=== PATIENT | female | born 1990 | race Caucasian/White ===

== ENCOUNTER 2017-04-08 13:23 | Outpatient (CLI) | payer OTHER ==
[2017-04-08 13:47] VITALS: BP 137/67; PULSE 104; RESP 16; TEMP 97
== END 2017-04-08 14:21 | disposition home or self-care (01) ==
LOC: FBPOP 13:23
PROVIDERS: ATTEND Obstetrics & Gynecology
DX: O99.89 Other specified diseases and conditions complicating pregnancy, childbirth and the puerperium (principal); R51 Headache
CPT/HCPCS: 59025; 99213

== ENCOUNTER 2017-04-16 22:14 | Inpatient (IN) | payer OTHER ==
[2017-04-16] MEDS ORDERED: CARBOPROST TROMETHAMINE 250 MCG/ML 1 ML AMP IM PRN (23:01)
[2017-04-16] MEDS ORDERED: OXYTOCIN 10 UNIT/ML 1 ML VIAL IM PRN (23:01)
[2017-04-16] MEDS ORDERED: METHYLERGONOVINE 0.2 MG/ML 1 ML AMP IM PRN (23:01)
[2017-04-16] MEDS ORDERED: LIDOCAINE 1% (PF) 10 MG/ML (30 ML SDV) SQ PRN (23:01)
[2017-04-16] MEDS ORDERED: TERBUTALINE 1 MG/ML VIAL SQ PRN (23:01)
[2017-04-16] MEDS ORDERED: BUTORPHANOL 1 MG/ML 1 ML VIAL IV PRN (23:02)
[2017-04-16] MEDS: LACTATED RINGERS 1,000 ML IV SCH ×2 (23:05→23:46)
[2017-04-16 23:13] LABS: Basophils # (A) 0.1 k/uL (0-0.2); Basophils % (A) 1 %; CHCM 32.4; Eosinophils # (A) 0.3 k/uL (0-0.7); Eosinophils % (A) 2 %; HDW 3.15; HGB 10.3 gm/dL (11.4-16.0); Hypochromasia Slight; Luc % (Auto) 2; Lymphocytes # (A) 2.8 k/uL (1.0-4.8); Lymphocytes % (A) 18 %; MCH 27.9 pg (25.0-35.0); MCHC 32.1 g/dL (31.0-37.0); MCV 86.7 fL (80.0-100.0); Monocytes # (A) 1.2 k/uL (0-1.0); Monocytes % (A) 8 %; Neutrophils # (A) 10.8 k/uL (1.3-7.7); Neutrophils % (A) 70 %; RBC 3.69 m/uL (3.80-5.40); RDW 14.8 % (11.5-15.5); WBC 15.5 k/uL (3.8-10.6); WBC (Perox) 14.85
[2017-04-16] MEDS ORDERED: fentaNYL (PF) 50 MCG/ML 5 ML AMP ONE (23:24)
[2017-04-16] MEDS ORDERED: BUPIVACAINE (PF) 0.25% 30 ML VIAL ONE (23:24)
[2017-04-16] MEDS ORDERED: SODIUM CHLORIDE 0.9% 100 ML BAG ONE (23:24)
[2017-04-16 23:46] VITALS: BMI 33.2
[2017-04-17] MEDS: LACTATED RINGERS 1,000 ML IV SCH (04:35)
--- NOTE | 2017-04-17 04:40 | P.HPOB ---
History of Present Illness H&P Date: 04/17/17 Chief Complaint: My water broke at 2 PM This is a 26-year-old white female 1 para 0 EDC 05/02/2017 at 38 and one sevenths weeks' gestation. Patient presented with regular uterine contractions from home, and spontaneous amniorrhexis at 1400 hrs., clear fluid. Fetus is been active throughout the . Past medical history is significant for mild exercise-induced asthma, depression previously on Lexapro, endometriosis and hypothyroidism. Past surgical history wisdom teeth extracted, laparoscopic surgery for endometriosis 2012. Current medications levothyroxine 50 MCG's daily, vitamins daily, Ventolin inhaler as needed. ALLERGIES none known. Social history patient is single, she denies tobacco alcohol or drug use. history blood type is A+, rubella status immune. VDRL testing, hepatitis B surface antigen, gonorrhea and chlamydia cultures, HIV testing, group B strep cultures all -1 hour Glucola 122. On exam this is a pleasant white female, 5 foot 1 inch, 176 pounds, vital signs are stable and patient is afebrile. The general physical exam is within normal limits. Cervix on admission was 4-5 cm dilated, obvious ruptured membranes, -2 station, vertex presentation. heart rate is in the 140s with frequent accelerations, consistent with reactive NST. Impression 38 and one sevenths week intrauterine , unremarkable course, in active spontaneous labor. Plan: Close maternal and surveillance. Epidural and or Stadol can be given as per patient request. Anticipate normal spontaneous vaginal delivery. Review of Systems Negative except as in HPI Past Medical History Past Medical History: Asthma, Thyroid Disorder Additional Past Medical History / Comment(s): endometriosis, ovarian cyst History of Any Multi-Drug Resistant Organisms: None Reported Additional Past Surgical History / Comment(s): laprascopic removal of ovarian cyst Past Anesthesia/Blood Transfusion Reactions: No Reported Reaction Past Psychological History: Anxiety Smoking Status: Never smoker Past Alcohol Use History: None Reported, Occasional Past Drug Use History: None Reported - Past Family History Mother Family Medical History: Thyroid Disorder Additional Family Medical History / Comment(s): hypothyroidism Medications and Allergies Home Medications Medication Instructions Recorded Confirmed Type Levothyroxine Sodium [Synthroid] 1 tab PO DAILY 09/30/15 04/16/17 History Pnv,Calcium 72/Iron/Folic Acid 1 tab PO DAILY 04/16/17 04/16/17 History [ Plus Tablet] Allergies Allergy/AdvReac Type Severity Reaction Status Date / Time No Known Allergies Allergy Verified 04/16/17 22:32 Exam - Vital Signs Vital signs: Vital Signs Temp Pulse Resp BP 04/16/17 22:33 96.9 F L 97 16 131/75 Intake and Output 04/16/17 04/16/17 04/17/17 14:59 22:59 06:59 Output Total 200 Balance -200 Output: Urine 200 Other: # Voids 1 Weight 79.832 kg Patient Weight 04/17/17 06:59 Weight 79.832 kg Please see dictation under HPI Results Result Diagrams: 04/16/17 23:05 Abnormal Lab Results - Last 24 Hours (Table) 04/16/17 Range/Units 23:05 WBC 15.5 H (3.8-10.6) k/uL RBC 3.69 L (3.80-5.40) m/uL Hgb 10.3 L (11.4-16.0) gm/dL Hct 32.0 L (34.0-46.0) % Neutrophils # 10.8 H (1.3-7.7) k/uL Monocytes # 1.2 H (0-1.0) k/uL Assessment and Plan Plan: Close maternal and surveillance. Analgesic options discussed with the patient. Anticipate normal spontaneous vaginal delivery Time with Patient: Less than 30
[2017-04-17] MEDS ORDERED: OXYTOCIN 20 UNITS/1000 ML NS 1,000 ML IV SCH (04:45)
[2017-04-17] MEDS ORDERED: BENZOCAINE SPRAY 57GM TOPICAL PRN (06:37)
[2017-04-17] MEDS ORDERED: SIMETHICONE 80 MG CHEWABLE PO PRN (06:37)
[2017-04-17] MEDS ORDERED: WITCH HAZEL 1 EACH MED..PAD TOPICAL PRN (06:37)
[2017-04-17] MEDS ORDERED: diphenhydrAMINE 50 MG/ML 1 ML VIAL IVP PRN ×2 (06:37)
[2017-04-17] MEDS ORDERED: diphenhydrAMINE 50 MG CAP PO PRN (06:37)
[2017-04-17] MEDS ORDERED: ACETAMINOPHEN TAB 325 MG TAB PO PRN (06:37)
[2017-04-17] MEDS ORDERED: diphenhydrAMINE 25 MG CAP PO PRN (06:37)
[2017-04-17] MEDS ORDERED: HYDROCORTISONE 2.5% RECTAL CREAM 30 GM TUBE RECTAL PRN (06:37)
[2017-04-17] MEDS ORDERED: diphenhydrAMINE ELIXIR 25 MG/10 ML CUP PO PRN (06:37)
[2017-04-17] MEDS ORDERED: Acetaminophen-Codeine 300-30mg TAB PO PRN (06:37)
[2017-04-17] MEDS ORDERED: ZOLPIDEM 5 MG TAB PO PRN (06:37)
[2017-04-17] MEDS ORDERED: LANOLIN CREAM 5 GM TUBE TOPICAL PRN (06:37)
--- NOTE | 2017-04-17 06:37 | P.PROBDLV ---
Vaginal Delivery Note - . Vaginal Delivery Note: This is a 26-year-old white female 1 para 0 EDC 04/29/2017 at 38 and one sevenths weeks' gestation patient presented from home with spontaneous amniorrhexis which occurred at 4 PM. Fluid was clear, she had uterine contractions to follow. was essentially unremarkable, group B strep cultures negative, blood type A positive, rubella status immune. Please see my dictated history and physical for details. Patient requested an epidural and this was placed without difficulty. She progressed through labor and was judged to be completely dilated at 0537 hours. She began the second stage of labor at that time. heart rate was reassuring throughout the entire first and second stages of labor. With excellent maternal expulsive efforts ultimately the head crowned on the perineal body. The perineum was prepped and draped in the usual sterile fashion. 's head delivered an restituted accordingly. There was no nuchal cord noted. The left or anterior shoulder was delivered from underneath the pubic symphysis at which time the oropharynx, nasopharynx, and external nares were bulb suctioned on the perineal body. Patient was officially delivered of a liveborn female infant at 0613 hours. Umbilical cord was doubly clamped and ligated, he she was handed to waiting nurses for evaluation where scores of 9 and 9 at one and 5 minutes respectively were given. The placenta delivered spontaneously, it was inspected and noted to be intact with trivascular cord at 0615 hours. At this time the uterus was massaged. Inspection of the cervix, perineum, periurethral and perirectal areas revealed a small second-degree perineal laceration. This was repaired in the usual fashion using 4-0 Vicryl suture. Fundus is firm and in the midline, symmetric and 18 week size upon completion of delivery. Total estimated blood loss 300 mL's. All sponge needle and enhancement counts are correct at the end of the procedure. The patient and her family are allowed to begin the bonding experience in the LDR.
[2017-04-17] MEDS: SENNOSIDES-DOCUSATE SODIUM 1 EACH TAB PO SCH ×2 (12:55→20:52)
[2017-04-17] MEDS: IBUPROFEN 600 MG TAB PO PRN (15:30)
[2017-04-17] MEDS ORDERED: BUPIVACAINE (PF) 0.25% 25 ML, fentaNYL (PF) 200 MCG in SODIUM CHLORIDE 0.9% 71 ML EPIDURAL ONE (20:30)
[2017-04-18 01:01] VITALS: RESP 16
[2017-04-18 01:03] VITALS: BP 112/64; PULSE 86; TEMP 98.7
[2017-04-18] MEDS ORDERED: LEVOTHYROXINE 50 MCG TAB PO SCH (06:30)
[2017-04-18] MEDS: IBUPROFEN 600 MG TAB PO PRN (07:43)
[2017-04-18] MEDS: SENNOSIDES-DOCUSATE SODIUM 1 EACH TAB PO SCH (07:44)
--- NOTE | 2017-04-18 12:16 | P.DS ---
Providers Date of admission: 04/16/17 22:36 Expected date of discharge: 04/18/17 Attending physician: Srege Salas Primary care physician: Serge Salas - Discharge Diagnosis(es) (1) Normal spontaneous vaginal delivery Current Visit: Yes Status: Acute Hospital Course: The patient is a 26-year-old 1 para 0 admitted at 38 and one sevenths weeks by good dating parameters. She is admitted in early active labor with all signs reassuring having had spontaneous rupture of clear fluid. Her has been uncomplicated and group B strep status is negative. On labor and delivery, an epidural cath was placed for analgesia. She made consistent progress to the active phase of labor to complete and then pushed to a normal spontaneous vaginal delivery of a viable 7 lbs. 9 oz. baby girl with Apgars of 9 at 1 minute and 9 at 5 minutes. Her course was unremarkable vital signs remained stable and her temperature was afebrile throughout. She was deemed stable for discharge by day #1 and was discharged home to follow-up in the office in 6 weeks' time routinely. Discharge instructions included calling for any significantly increased bleeding or foul-smelling lochia, significantly increased fever or abdominal pain, perineal complaints, breast complaints, or anything else that concerned her. She was additionally instructed to have nothing in the vagina for at least 6 weeks time to include intercourse. She understood her instructions and agrees to follow up as noted above. Discharge medications included continued vitamins as she has opted to breast-feed. She was otherwise using over -the-counter analgesic pain medications as needed. Maternal blood type is A+ and rubella status is immune. Procedures: #1. Epidural analgesia #2. Normal spontaneous vaginal delivery #3. Repair of perineal laceration Patient Condition at Discharge: Good Plan - Discharge Summary New Discharge Prescriptions: No Action Levothyroxine Sodium [Synthroid] 1 tab PO DAILY Pnv,Calcium 72/Iron/Folic Acid [ Plus Tablet] 1 tab PO DAILY Discharge Medication List Levothyroxine Sodium [Synthroid] 1 tab PO DAILY 09/30/15 [History] Pnv,Calcium 72/Iron/Folic Acid [ Plus Tablet] 1 tab PO DAILY 04/16/17 [ History] Follow up Appointment(s)/Referral(s): Serge Salas MD [Primary Care Provider] - 6 Weeks Discharge Disposition: HOME SELF-CARE
== END 2017-04-18 13:30 | disposition home or self-care (01) | DRG 775 ==
LOC: FBPOP 22:14 → 4FBP 22:36
PROVIDERS: ADMIT Obstetrics & Gynecology; ATTEND Obstetrics & Gynecology
PROC: 0KQM0ZZ Repair Perineum Muscle, Open Approach (ICD-10-PCS; principal; 2017-04-16)
PROC: 00HU33Z Insertion of Infusion Device into Spinal Canal, Percutaneous Approach (ICD-10-PCS; principal; 2017-04-16)
PROC: 10E0XZZ Delivery of Products of Conception, External Approach (ICD-10-PCS; principal; 2017-04-16)
PROC: 3E0R3CZ (ICD-10-PCS; principal; 2017-04-16)
DX: O99.284 Endocrine, nutritional and metabolic diseases complicating childbirth (principal); E03.9 Hypothyroidism, unspecified; Z37.0 Single live birth; O70.1 Second degree perineal laceration during delivery; Z79.899 Other long term (current) drug therapy; Z3A.38 38 weeks gestation of pregnancy
CPT/HCPCS: 59025; 84112; 85025; 88307; 99213

== ENCOUNTER 2019-02-19 18:20 | Outpatient (CLI) | payer OTHER ==
[2019-02-19 18:52] VITALS: BP 124/72; PULSE 100; RESP 16; TEMP 98.4
[2019-02-19 18:56] LABS: Appearance,Urine Clear (Clear); Bilirubin,Urine Negative (Negative); Blood,Urine Negative (Negative); Color,Urine Light Yellow; Glucose,Urine (UA) Negative (Negative); Ketones,Urine Negative (Negative); Leukocyte Esterase,Urine Negative (Negative); Nitrite,Urine Negative (Negative); PH, Urine 6.5 (5.0-8.0); Protein,Urine Negative (Negative); Specific Gravity,Urine 1.005 (1.001-1.035); Urobilinogen,Urine <2.0 mg/dL (<2.0)
--- NOTE | 2019-02-27 09:44 | P.MSEPDOC ---
Presenting Problems - Arrival Data Date of Arrival on Unit: 02/19/19 Time of Arrival on Unit: 18:20 Mode of Transport: Ambulatory - Complaint OB-Reason for Admission/Chief Complaint: Signs/Symptoms UTI Medical History - Information : 2 Para: 1 Term: 1 : 0 Abortions: Spontaneous or Elective: 0 Number of Living Children: 1 - Gestational Age Gestational Age by MITA (wks/days): 33 Weeks and 2 Days Review of Systems - Review of Systems Constitutional: No problems Breast: No problems ENT: No problems Cardiovascular: No problems Respiratory: No problems Genitourinary: No problems Musculoskeletal: No problems Neurological: No problems Skin: No problems Vital Signs - Temperature Temperature: 98.4 F Temperature Source: Temporal Artery Scan - Pulse Left Pulse Rate: 100 Pulse Assessment Method: Pulse Oximetry - Respirations Respiratory Rate: 16 Oxygen Delivery Method: Room Air O2 Sat by Pulse Oximetry: 99 - Blood Pressure Right Arm Blood Pressure: 124/72 Blood Pressure Mean: 89 Blood Pressure Source: Automatic Cuff Medical Screen Scoring (Pre) - Cervical Exam Dilation: Exam Deferred Effacement: Exam Deferred Membranes: Intact - Uterine Contractions Frequency: N/A Duration: N/A Intensity: N/A - Maternal Vital Signs Maternal Temperature: N/A Maternal Blood Pressure: N/A Signs of Preeclampsia: N/A Maternal Respirations: N/A - Pain Assessment Pain Location and Character: Right, Lower, Back, Abdomen Pain Scale Used: Numeric (1 - 10) Pain Intensity: 5 Pain Management Goal: 0 Pain Description: *Acute, Cramping, Sharp Pain Frequency: Occasional Pain Duration Units: Minutes Pain Behavior: Vocalization Non-Pharmacological Interventions: Position/Reposition, Relaxation Technique - Maternal Trauma Maternal Trauma: N/A - Assessment Baseline FHR: 145 Heart Rate - NICHD Category: Category I (Normal) = 0 NST: Reactive Position: N/A Station: N/A - Total Score Total Score (Pre): 0 - Level of Risk Level of Risk: Low (0-5) Physician Notification (Pre) - Physician Notified Physician Notified Date: 02/19/19 Physician Notified Time: 18:43 Physician/Practitioner Notifed:: Dr. Carranza Spoke With: Dr. Carranza New Order Received: Yes (UA and call with results.) Physician Notification (Post) - Physician Notified Physician Notified Date: 02/19/19 Physician Notified Time: 19:37 Physician/Practitioner Notified:: Dr Carranza - Notification Comment Comment: called and reported on UA results WNL, reactive fhts, few cntrx have traced, pt did not feel them, they're not palpable, pt has no complaints at this time. orders to d/c home, pt may have tylenol OTC, heating pad for her back. Keep scheduled appt in office on Tuesday, or call in am if needs to be seen sooner Disposition - Disposition OB Disposition: Discharge to home Discharge Date: 02/19/19 Discharge Time: 19:40 I agree with the RN Medical Screening Exam: Yes Risk & Benefit of care provided described in d/c instruction: Yes Diagnosis: PAIN, UNSPECIFIED
== END 2019-02-19 19:40 | disposition home or self-care (01) ==
LOC: FBPOP 18:20
PROVIDERS: ATTEND Obstetrics & Gynecology
DX: O99.89 Other specified diseases and conditions complicating pregnancy, childbirth and the puerperium (principal); R52 Pain, unspecified; Z3A.33 33 weeks gestation of pregnancy
CPT/HCPCS: 59025; 81003; 99213

== ENCOUNTER 2019-04-01 00:20 | Outpatient (CLI) | payer BC ==
[2019-04-01 00:51] VITALS: BP 122/68; TEMP 98.4
[2019-04-01 01:30] VITALS: PULSE 121; RESP 16
--- NOTE | 2019-04-06 10:26 | P.MSEPDOC ---
Presenting Problems - Arrival Data Date of Arrival on Unit: 04/01/19 Time of Arrival on Unit: 00:21 Mode of Transport: Ambulatory - Complaint OB-Reason for Admission/Chief Complaint: Decreased Movement Medical History - Information : 2 Para: 1 Term: 1 : 1 Abortions: Spontaneous or Elective: 1 Number of Living Children: 1 - Gestational Age Gestational Age by MITA (wks/days): 39 Weeks and 1 Days Review of Systems - Review of Systems Constitutional: No problems Breast: No problems ENT: No problems Cardiovascular: No problems Respiratory: No problems Gastrointestinal: No problems Genitourinary: No problems Musculoskeletal: No problems Neurological: No problems Skin: No problems Vital Signs - Temperature Temperature: 98.4 F Temperature Source: Oral - Pulse Pulse Oximetery Pulse Rate: 121 Pulse Assessment Method: Pulse Oximetry - Respirations Respiratory Rate: 16 Oxygen Delivery Method: Room Air - Blood Pressure Sitting Blood Pressure: 122/68 Blood Pressure Mean: 86 Blood Pressure Source: Automatic Cuff Medical Screen Scoring (Pre) - Cervical Exam Dilation: 4-7 cm = 2 Membranes: Intact - Uterine Contractions Frequency: > 5 minutes apart = 1 - Maternal Vital Signs Maternal Temperature: N/A Maternal Blood Pressure: N/A Signs of Preeclampsia: N/A Maternal Respirations: N/A - Pain Assessment Pain Scale Used: Numeric (1 - 10) Pain Intensity: 0 - Maternal Trauma Maternal Trauma: N/A - Assessment Baseline FHR: 150 Heart Rate - NICHD Category: Category I (Normal) = 0 NST: Reactive Position: N/A Station: N/A - Total Score Total Score (Pre): 3 - Level of Risk Level of Risk: Low (0-5) Physician Notification (Pre) - Physician Notified Physician Notified Date: 04/01/19 Physician Notified Time: 00:59 Spoke With: Maritza Zapata Order Received: Yes - Notification Comment Comment: discharge with instruction if reactive NST Medical Screen Scoring (Post) - Post Treatment Level of Risk Post Treatment Level of Risk: Low (0-5) Physician Notification (Post) - Notification Comment Comment: reactive NST good movement, discharged to home Disposition - Disposition OB Disposition: Discharge to home, Written follow up instructions reviewed Discharge Date: 04/01/19 Discharge Time: 01:18 I agree with the RN Medical Screening Exam: Yes Risk & Benefit of care provided described in d/c instruction: Yes Diagnosis: DECREASED MOVEMENTS, THIRD TRIMESTER, UNSP
== END 2019-04-01 01:18 | disposition home or self-care (01) ==
LOC: FBPOP 00:20
PROVIDERS: ATTEND Obstetrics & Gynecology
DX: O36.8130 Decreased fetal movements, third trimester, not applicable or unspecified (principal); Z3A.39 39 weeks gestation of pregnancy
CPT/HCPCS: 59025; 84112; 99213

== ENCOUNTER 2019-04-05 06:20 | Inpatient (IN) | payer BC ==
[2019-04-05 06:45] VITALS: BMI 29.6
[2019-04-05] MEDS ORDERED: METHYLERGONOVINE 0.2 MG/ML 1 ML AMP IM PRN (07:02)
[2019-04-05] MEDS ORDERED: OXYTOCIN 10 UNIT/ML 1 ML VIAL IM PRN (07:02)
[2019-04-05] MEDS ORDERED: CARBOPROST TROMETHAMINE 250 MCG/ML 1 ML AMP IM PRN (07:02)
[2019-04-05] MEDS ORDERED: TERBUTALINE 1 MG/ML VIAL SQ PRN (07:02)
[2019-04-05] MEDS ORDERED: LIDOCAINE 0.5% (PF) 5 MG/ML (50 ML SDV) SQ PRN (07:02)
[2019-04-05] MEDS: LACTATED RINGERS 1,000 ML IV SCH ×2 (07:06→11:27)
[2019-04-05] MEDS ORDERED: OXYTOCIN 30 UNITS/500 ML NS 30 UNIT in SALINE 1 500ML.BAG IV SCH (07:15)
[2019-04-05 07:16] LABS: Basophils % (A) 0 %; Eosinophils # (A) 0.3 k/uL (0-0.7); Eosinophils % (A) 3 %; HCT 33.6 % (34.0-46.0); Lymphocytes # (A) 2.2 k/uL (1.0-4.8); Lymphocytes % (A) 20 %; MCH 29.4 pg (25.0-35.0); MCHC 32.7 g/dL (31.0-37.0); MCV 89.8 fL (80.0-100.0); Mean Platelet Volume 7.9; Monocytes # (A) 0.8 k/uL (0-1.0); Monocytes % (A) 7 %; Neutrophils # (A) 7.9 k/uL (1.3-7.7); Neutrophils % (A) 69 %; Platelet Count 200 k/uL (150-450); RBC 3.74 m/uL (3.80-5.40); RDW 15.3 % (11.5-15.5); WBC 11.5 k/uL (3.8-10.6)
[2019-04-05] MEDS ORDERED: diphenhydrAMINE 50 MG CAP PO PRN (12:17)
[2019-04-05] MEDS ORDERED: HYDROcodone/APAP 5-325MG 1 EACH TAB PO PRN (12:17)
[2019-04-05] MEDS ORDERED: HYDROcodone/APAP 7.5-325MG 1 EACH TAB PO PRN (12:17)
[2019-04-05] MEDS ORDERED: BENZOCAINE/MENTHOL SPRAY 1 GM/SPRAY AEROSOL TOPICAL PRN (12:17)
[2019-04-05] MEDS ORDERED: WITCH HAZEL 1 EACH MED..PAD TOPICAL PRN (12:17)
[2019-04-05] MEDS ORDERED: SIMETHICONE 80 MG CHEWABLE PO PRN (12:17)
[2019-04-05] MEDS ORDERED: ACETAMINOPHEN TAB 325 MG TAB PO PRN (12:17)
[2019-04-05] MEDS ORDERED: diphenhydrAMINE 50 MG/ML 1 ML VIAL IVP PRN ×2 (12:17)
[2019-04-05] MEDS ORDERED: ZOLPIDEM 5 MG TAB PO PRN (12:17)
[2019-04-05] MEDS ORDERED: HYDROCORTISONE 2.5% RECTAL CREAM 30 GM TUBE RECTAL PRN (12:17)
[2019-04-05] MEDS ORDERED: diphenhydrAMINE 25 MG CAP PO PRN (12:17)
[2019-04-05] MEDS ORDERED: LANOLIN CREAM 5 GM TUBE TOPICAL PRN (12:17)
--- NOTE | 2019-04-05 12:23 | P.HPOB ---
History of Present Illness H&P Date: 04/05/19 Chief Complaint: 39-5/7 weeks, induction The patient is a 28-year-old 2 para 1001 admitted at 39-5/7 weeks as established by 12 week ultrasound. She is admitted for elective induction with all signs reassuring and a very favorable cervix. Her has been ent irely uncomplicated and group B strep status is negative. Obstetrical history: 2 para 1001 with 1 term vaginal delivery without Occasions. Current statistics are listed in history of present illness. EDC of 04/07/2019 was established by 12 week ultrasound. Laboratory workup done Schutze blood type of A+ with a negative antibody screen. Rubella status is immune. The remainder of the laboratory workup was within normal limits. One hour Glucola was normal and group B strep status was negative. Gynecology history: Unremarkable with no history of any infections to include STDs. Review of Systems Review of systems is confined to history of present illness. Past Medical History Past Medical History: Asthma, Thyroid Disorder Additional Past Medical History / Comment(s): endometriosis, ovarian cyst History of Any Multi-Drug Resistant Organisms: None Reported Additional Past Surgical History / Comment(s): laprascopic removal of ovarian cyst Past Anesthesia/Blood Transfusion Reactions: No Reported Reaction Past Psychological History: Anxiety Smoking Status: Never smoker Past Alcohol Use History: None Reported Past Drug Use History: None Reported - Past Family History Mother Family Medical History: Thyroid Disorder Additional Family Medical History / Comment(s): hypothyroidism Medications and Allergies Home Medications Medication Instructions Recorded Confirmed Type Pnv,Calcium 72/Iron/Folic Acid 1 tab PO DAILY 04/16/17 04/05/19 History [ Plus Tablet] Ferrous Sulfate [Iron] 1 tab PO DAILY 04/05/19 04/05/19 History Allergies Allergy/AdvReac Type Severity Reaction Status Date / Time No Known Allergies Allergy Verified 04/05/19 06:46 Exam Vital Signs Temp Pulse Resp BP 04/05/19 06:38 97.8 F 104 H 16 116/65 Intake and Output 04/04/19 04/05/19 04/05/19 22:59 06:59 14:59 Other: Weight 73.482 kg In general, this is a well-developed, well-nourished white female in no acute distress. Her heart has a regular rhythm and rate without murmur. Her lungs are clear to auscultation bilaterally in all proctor. Her abdomen is gravid, nondistended, has normal active bowel sounds, is soft, nontender, and without a ny palpable masses aside from the uterine fundus. Her extremities are without any cyanosis, clubbing, or significant edema and are nontender to palpation bilaterally. Digital cervical examination done Schutze surgery roughly 4 synovators dilated, 70% effaced, the vertex in presentation at -2 station. Artificial rupture of membranes is carried out demonstrating clear fluid. Results Result Diagrams: 04/05/19 06:38 Abnormal Lab Results - Last 24 Hours (Table) 04/05/19 Range/Units 06:38 WBC 11.5 H (3.8-10.6) k/uL RBC 3.74 L (3.80-5.40) m/uL Hgb 11.0 L (11.4-16.0) gm/dL Hct 33.6 L (34.0-46.0) % Neutrophils # 7.9 H (1.3-7.7) k/uL Assessment and Plan (1) Term Current Visit: Yes Status: Acute Code(s): Z34.90 - ENCNTR FOR SUPRVSN OF NORMAL , UNSP, UNSP TRIMESTER SNOMED Code(s): 16671930 Plan: The patient is admitted for elective induction of labor with a very favorable cervix. Her has been uncomplicated. On labor and delivery, she will have Pitocin augmentation started and has Naren undergone artificial rupture of membranes. She will have close maternal and surveillance and expectant management will be practiced. She is a good candidate for either IV or epidural analgesia, whichever she may choose.
--- NOTE | 2019-04-05 12:24 | P.PROBDLV ---
Vaginal Delivery Note - . Vaginal Delivery Note: The patient is a 28-year-old 2 para 1001 admitted at 39-5/7 weeks by good dating parameters. She is admitted for an elective induction of labor with all signs reassuring and a very favorable cervix. On labor and delivery, she had Pitocin augmentation started and underwent artificial rupture of membranes demonstrating clear fluid. She made fairly rapid progress through the active phase of labor and had an epidural catheter placed during this time. She then progressed to complete fairly quickly. She pushed over the course of 2 contractions to a normal spontaneous vaginal delivery of a viable 6 lbs. 15 oz. baby girl with Apgars of 8 at 1 minute and 9 at 5 minutes delivered in the right occiput anterior position. The placenta was delivered spontaneously, intact, and grossly normal with a grossly normal three-vessel cord inserted approximate 2 cm from the margin of the placental disc. The cord was fairly significantly short. There was a small midline second-degree perineal laceration over the site of a previous laceration which was repaired in standard fashion using 3-0 chromic catgut without difficulty. Estimated blood loss for the case was approximately 150 mL. There were no complications. All sponge, instrument, and needle counts were correct. Both mother and are resting comfortably in recovery.
[2019-04-05] MEDS ORDERED: OXYTOCIN 20 UNITS/1000 ML NS 1,000 ML IV SCH (12:30)
[2019-04-06] MEDS: IBUPROFEN 600 MG TAB PO PRN ×2 (00:05→08:27)
[2019-04-06] MEDS: SENNOSIDES-DOCUSATE SODIUM 1 EACH TAB PO SCH ×2 (00:06→08:27)
[2019-04-06 04:43] VITALS: RESP 18
[2019-04-06 08:32] VITALS: BP 115/57; PULSE 73; TEMP 98.3
--- NOTE | 2019-04-06 10:04 | P.DS ---
Providers Date of admission: 04/05/19 06:20 Expected date of discharge: 04/06/19 Attending physician: Serge Salas Primary care physician: Nehal Martinez - Discharge Diagnosis(es) (1) Term Current Visit: Yes Status: Acute (2) Normal spontaneous vaginal delivery Current Visit: No Status: Acute Hospital Course: The patient is a 28-year-old 2 para 1001 admitted at 39-5/7 weeks by good dating parameters. She is admitted for elective induction with all signs reassuring following an entirely uncomplicated . Group B strep status is negative. On labor and delivery, she had Pitocin started followed by artificial rupture of membranes demonstrating clear fluid. She made rapid progress to the active phase of labor and had an epidural catheter placed during that time as well. She then pushed to a normal spontaneous vaginal delivery of a viable 6 lbs. 15 oz. baby girl with Apgars of 8 at 1 minute and 9 at 5 minutes. Her course was entirely unremarkable with vital signs remained stable and her temperature was afebrile throughout. She was deemed stable for discharge on day 1 was discharged home to follow-up in the office in 6 weeks' time routinely. Discharge instructions included calling for any significantly increased bleeding or foul-smelling lochia, significantly increased fever abdominal pain, perineal complaints, breast complaints, or anything else that concerned her. She was additionally instructed to have nothing in the vagina for at least 6 weeks time to include intercourse. She understood all of her instructions and agrees to follow up as noted above. Discharge medications included only [id number] analgesic pain medications as needed as well as continued vitamins as she has opted to breast- feed. Maternal blood type is A+ and rubella status is immune. Procedures: #1. Pitocin induction #2. Artificial rupture of membranes #3. Epidural analgesia #4. Normal spontaneous vaginal delivery #5. Repair of perineal laceration Patient Condition at Discharge: Good Plan - Discharge Summary Discharge Rx Participant: No New Discharge Prescriptions: No Action Pnv,Calcium 72/Iron/Folic Acid [ Plus Tablet] 1 tab PO DAILY Ferrous Sulfate [Iron] 1 tab PO DAILY Discharge Medication List Pnv,Calcium 72/Iron/Folic Acid [ Plus Tablet] 1 tab PO DAILY 04/16/17 [History] Ferrous Sulfate [Iron] 1 tab PO DAILY 04/05/19 [History] Follow up Appointment(s)/Referral(s): Serge Salas MD [STAFF PHYSICIAN] - 6 Weeks Discharge Disposition: HOME SELF-CARE
== END 2019-04-06 12:45 | disposition home or self-care (01) | DRG 807 ==
LOC: 4FBP 06:20
PROVIDERS: ADMIT Obstetrics & Gynecology; ATTEND Obstetrics & Gynecology
PROC: 10E0XZZ Delivery of Products of Conception, External Approach (ICD-10-PCS; principal; 2019-04-05)
PROC: 3E033VJ Introduction of Other Hormone into Peripheral Vein, Percutaneous Approach (ICD-10-PCS; principal; 2019-04-05)
PROC: 0KQM0ZZ Repair Perineum Muscle, Open Approach (ICD-10-PCS; principal; 2019-04-05)
PROC: 10907ZC Drainage of Amniotic Fluid, Therapeutic from Products of Conception, Via Natural or Artificial Opening (ICD-10-PCS; principal; 2019-04-05)
PROC: 3E0R3NZ Introduction of Analgesics, Hypnotics, Sedatives into Spinal Canal, Percutaneous Approach (ICD-10-PCS; principal; 2019-04-05)
PROC: 00HU33Z Insertion of Infusion Device into Spinal Canal, Percutaneous Approach (ICD-10-PCS; principal; 2019-04-05)
DX: O70.1 Second degree perineal laceration during delivery (principal); Z37.0 Single live birth; Z3A.39 39 weeks gestation of pregnancy
CPT/HCPCS: 85025; 86850; 86900; 86901

== ENCOUNTER 2020-11-20 13:08 | Outpatient (CLI) | payer BC, OTHER ==
[2020-11-20 14:59] VITALS: BP 122/72; PULSE 95; RESP 14; TEMP 97.9
--- NOTE | 2021-01-02 15:16 | P.MSEPDOC ---
Presenting Problems - Arrival Data Date of Arrival on Unit: 11/20/20 Time of Arrival on Unit: 13:12 Mode of Transport: Ambulatory - Complaint OB-Reason for Admission/Chief Complaint: Possible Onset of Labor, Other Comment: pt reporting painless contractions Medical History - Information : 3 Para: 2 Term: 2 : 0 Abortions: Spontaneous or Elective: 0 Number of Living Children: 2 - Gestational Age Gestational Age by MITA (wks/days): 39 Weeks and 2 Days Review of Systems - Review of Systems Constitutional: No problems Breast: No problems ENT: No problems Cardiovascular: No problems Respiratory: No problems Gastrointestinal: No problems Genitourinary: No problems Musculoskeletal: No problems Neurological: No problems Skin: No problems Vital Signs - Temperature Temperature: 97.9 F Temperature Source: Temporal Artery Scan - Pulse Brachial Pulse Rate: 95 Pulse Assessment Method: Automatic Cuff - Respirations Respiratory Rate: 14 Oxygen Delivery Method: Room Air - Blood Pressure Right Arm Blood Pressure: 122/72 Blood Pressure Mean: 88 Blood Pressure Source: Automatic Cuff Medical Screen Scoring (Pre) - Cervical Exam Dilation: 4-7 cm = 2 Membranes: Intact - Uterine Contractions Frequency: > 5 minutes apart = 1 - Maternal Vital Signs Maternal Temperature: N/A Maternal Blood Pressure: N/A Signs of Preeclampsia: N/A Maternal Respirations: N/A - Maternal Trauma Maternal Trauma: N/A - Assessment - Baby A Baseline FHR: 135 Heart Rate - NICHD Category: Category I (Normal) = 0 - Total Score - Baby A Total Score - Baby A: 3 - Total Score - Baby B Total Score - Baby B: 3 - Total Score - Baby C Total Score - Baby C: 3 - Level of Risk - Baby A Level of Risk - Baby A: Low (0-5) - Level of Risk - Baby B Level of Risk - Baby B: Low (0-5) - Level of Risk - Baby C Level of Risk - Baby C: Low (0-5) Physician Notification (Pre) - Physician Notified Physician Notified Date: 11/20/20 Physician Notified Time: 13:38 New Order Received: Yes - Notification Comment Comment: dr wise spoke with pt at bedside and offered to have pt stay r/t dilation, pt will be rechecked by rn in one hour. pt will make decision at that time. after one hour in triage, cervical exam with no change, no contractions felt by pt, reactive fht, pt and s.o. prefer to be discharged home and will return with any painful contractions, s/s of labor or further reasons discussed at discharge recorded in OBIX Disposition - Disposition OB Disposition: Discharge to home Discharge Date: 11/20/20 Discharge Time: 14:45 I agree with the RN Medical Screening Exam: Yes Physician's MSE Comment: Patient was not seen or examined by myself Case reviewed; plan agreed upon as documented in EMR&OBIX.: Yes Diagnosis: FALSE LABOR BEFORE 37 COMPLETED WEEKS OF GEST, THIRD TRI
== END 2020-11-20 14:45 | disposition home or self-care (01) ==
LOC: FBPOP 13:08
PROVIDERS: ATTEND Obstetrics & Gynecology Obstetrics
DX: O47.1 False labor at or after 37 completed weeks of gestation (principal); Z3A.39 39 weeks gestation of pregnancy
CPT/HCPCS: 59025; 99213

== ENCOUNTER 2020-11-21 08:56 | Inpatient (IN) | payer BC, OTHER ==
[2020-11-21] MEDS ORDERED: OXYTOCIN 10 UNIT/ML 1 ML VIAL IM PRN (09:24)
[2020-11-21] MEDS ORDERED: LIDOCAINE 0.5% (PF) 5 MG/ML (50 ML SDV) SQ PRN (09:24)
[2020-11-21] MEDS ORDERED: TERBUTALINE 1 MG/ML VIAL SQ PRN (09:24)
[2020-11-21] MEDS ORDERED: METHYLERGONOVINE 0.2 MG/ML 1 ML AMP IM PRN (09:24)
[2020-11-21] MEDS ORDERED: CARBOPROST TROMETHAMINE 250 MCG/ML 1 ML AMP IM PRN (09:24)
[2020-11-21] MEDS ORDERED: OXYTOCIN 30 UNITS/500 ML NS 30 UNIT in SALINE 1 500ML.BAG IV SCH ×2 (09:30→14:45)
[2020-11-21 10:04] LABS: Basophils # (A) 0.1 k/uL (0-0.2); Basophils % (A) 0 %; Eosinophils # (A) 0.1 k/uL (0-0.7); Eosinophils % (A) 1 %; HCT 33.1 % (34.0-46.0); HGB 11.4 gm/dL (11.4-16.0); Lymphocytes # (A) 2.3 k/uL (1.0-4.8); Lymphocytes % (A) 20 %; MCH 29.6 pg (25.0-35.0); MCHC 34.3 g/dL (31.0-37.0); MCV 86.4 fL (80.0-100.0); Mean Platelet Volume 7.8; Monocytes # (A) 0.6 k/uL (0-1.0); Monocytes % (A) 6 %; Neutrophils # (A) 8.1 k/uL (1.3-7.7); Neutrophils % (A) 72 %; Platelet Count 227 k/uL (150-450); RBC 3.83 m/uL (3.80-5.40); WBC 11.3 k/uL (3.8-10.6)
[2020-11-21] MEDS: LACTATED RINGERS 1,000 ML IV SCH ×2 (10:05→17:45)
--- NOTE | 2020-11-21 13:09 | P.HPOB ---
History of Present Illness H&P Date: 11/21/20 Chief Complaint: Labor at 39-4/7 weeks' This is a 30-year-old 3 para 2002 woman with an estimated due date of 11/25/2020 by first trimester ultrasound who presents at 39-4/7 weeks gestation in spontaneous active labor. Upon initial evaluation in labor and delivery ortiz hutchinson her cervix was noted to be 6+ centimeters dilated and she was irregularly william. She denies leakage of fluids or vaginal bleeding. She has had an uncomplicated . Obstetrical history is significant for term vaginal deliveries in 2017 and 2019. These were uncomplicated and largest baby was 7 lbs. 9 oz. Laboratory data: Blood type A+, antibody screen negative, rubella immune, VDRL nonreactive, hepatitis B surface antigen negative, gonorrhea and clinic cultures negative, HIV negative, group B strep negative. Review of Systems All systems: negative Past Medical History Past Medical History: Asthma, Thyroid Disorder Additional Past Medical History / Comment(s): endometriosis, ovarian cyst History of Any Multi-Drug Resistant Organisms: None Reported Additional Past Surgical History / Comment(s): laprascopic removal of ovarian cyst Past Anesthesia/Blood Transfusion Reactions: No Reported Reaction Past Psychological History: Anxiety Smoking Status: Never smoker Past Alcohol Use History: None Reported Past Drug Use History: None Reported - Past Family History Mother Family Medical History: Thyroid Disorder Additional Family Medical History / Comment(s): hypothyroidism Medications and Allergies Home Medications Medication Instructions Recorded Confirmed Type Pnv,Calcium 72/Iron/Folic Acid 1 tab PO DAILY 04/16/17 11/21/20 History [ Plus Tablet] Ferrous Sulfate [Iron] 1 tab PO DAILY 04/05/19 11/20/20 History Escitalopram [Lexapro] 10 mg PO DAILY 11/20/20 11/21/20 History Allergies Allergy/AdvReac Type Severity Reaction Status Date / Time No Known Allergies Allergy Verified 11/21/20 09:11 Exam Vital Signs Temp Pulse Resp BP Pulse Ox 11/21/20 09:54 98.4 F 88 18 127/70 99 11/21/20 09:19 96.7 F L 108 H 18 133/72 100 Intake and Output 11/20/20 11/21/20 11/21/20 22:59 06:59 14:59 Other: Weight 80.739 kg Targeted physical exam is performed. This is a actively laboring, visibly gravi d female. On cervical examination the cervix is 9 cm dilated, 100% effaced with bulging membranes. Vertex in the -2 station. Artificial rupture of membranes is undertaken and copious clear fluid is noted. heart tones are category 1. She is william every 3-5 minutes spontaneously. Results Result Diagrams: 11/21/20 09:33 Abnormal Lab Results - Last 24 Hours (Table) 11/21/20 Range/Units 09:33 WBC 11.3 H (3.8-10.6) k/uL Hct 33.1 L (34.0-46.0) % Neutrophils # 8.1 H (1.3-7.7) k/uL Assessment and Plan (1) Spontaneous onset of labor Current Visit: Yes Status: Acute Code(s): EQI2927 - SNOMED Code(s): 35556286 (2) Term Current Visit: Yes Status: Acute Code(s): Z34.90 - ENCNTR FOR SUPRVSN OF NORMAL , UNSP, UNSP TRIMESTER SNOMED Code(s): 67626303 Plan: This is a 30-year-old 3 para 2001 woman who is admitted in spontaneous active labor at term. She is group B strep negative and Rh+. status is currently reassuring. I anticipate normal spontaneous vaginal delivery.
[2020-11-21] MEDS ORDERED: ACETAMINOPHEN TAB 325 MG TAB PO PRN (14:31)
[2020-11-21] MEDS ORDERED: BENZOCAINE/MENTHOL SPRAY 1 GM/SPRAY AEROSOL TOPICAL PRN (14:31)
[2020-11-21] MEDS ORDERED: IBUPROFEN 600 MG TAB PO PRN (14:31)
[2020-11-21] MEDS ORDERED: ZOLPIDEM 5 MG TAB PO PRN (14:31)
[2020-11-21] MEDS ORDERED: diphenhydrAMINE 50 MG/ML 1 ML VIAL IVP PRN ×2 (14:31)
[2020-11-21] MEDS ORDERED: diphenhydrAMINE 25 MG CAP PO PRN (14:31)
[2020-11-21] MEDS ORDERED: SIMETHICONE 80 MG CHEWABLE PO PRN (14:31)
[2020-11-21] MEDS ORDERED: diphenhydrAMINE 50 MG CAP PO PRN (14:31)
[2020-11-21] MEDS ORDERED: HYDROCORTISONE 2.5% RECTAL CREAM 30 GM TUBE RECTAL PRN (14:31)
[2020-11-21] MEDS ORDERED: LANOLIN CREAM 5 GM TUBE TOPICAL PRN (14:31)
--- NOTE | 2020-11-21 14:31 | P.PROBDLV ---
Vaginal Delivery Note - . Vaginal Delivery Note: Findings: Female in the vertex direct occiput anterior position with Apgars of 9 at 1 minute and 9 at 5 minutes weighing 7 lbs. 9 oz., 3420 g. First-degree perineal laceration. Intact, three-vessel cord placenta. EBL 150 mL's. Delivery summary: This is a 30-year-old 3 para 2001 woman who is admitted at 39-4/7 weeks gestation in spontaneous active labor with advanced cervical dilation. On admission she was 6+ centimeters dilated. She underwent artificial rupture of membranes. She had rupture of membranes at 12:55 PM and reach complete cervical dilation by 2:04 PM. She had commenced pushing with excellent maternal effort. There was rapid descent of the vertex. She was repositioned, prepped and draped in the modified Jennifer position. The 's head then delivered from the direct occiput anterior position. The shoulders were actually completely transverse and clockwise rotation of the posterior shoulder allowed for delivery of the anterior shoulder without difficulty. The rest of the infant delivered without difficulty rapidly onto the field. The nose and mouth were bulb suctioned. The was placed on the maternal abdomen. The cord was eventually clamped and cut. Apgars were 9 at 1 minute and 9 at 5 minutes and weight was 7 lbs. 9 oz. A first-degree perineal laceration was noted. This was infused with lidocaine and repaired with a 3-0 Vicryl suture. An intact, three-vessel cord placenta was delivered after an approximately 5 minute third stage of labor. The uterus was massaged and was noted to be firm at the level of the umbilicus. The patient received Pitocin following the third stage of labor. The rest of the vagina and cervix were inspected and no further lacerations were noted. Both mother and were doing well post delivery in the room. Counts were correct.
[2020-11-21] MEDS: SENNOSIDES-DOCUSATE SODIUM 1 EACH TAB PO SCH (20:26)
[2020-11-21 20:40] VITALS: RESP 16
[2020-11-22 01:26] VITALS: TEMP 98.3
[2020-11-22 08:16] LABS: Basophils % (A) 0 %; Eosinophils # (A) 0.1 k/uL (0-0.7); Eosinophils % (A) 1 %; HCT 29.8 % (34.0-46.0); Lymphocytes # (A) 2.2 k/uL (1.0-4.8); Lymphocytes % (A) 19 %; MCHC 32.7 g/dL (31.0-37.0); MCV 88.7 fL (80.0-100.0); Mean Platelet Volume 8.1; Monocytes # (A) 0.7 k/uL (0-1.0); Monocytes % (A) 6 %; Neutrophils # (A) 8.2 k/uL (1.3-7.7); Neutrophils % (A) 72 %; Platelet Count 203 k/uL (150-450); RBC 3.36 m/uL (3.80-5.40); RDW 14.4 % (11.5-15.5); WBC 11.4 k/uL (3.8-10.6)
[2020-11-22 08:20] LABS: HGB 9.8 gm/dL (11.4-16.0)
[2020-11-22 08:40] VITALS: BP 112/72; PULSE 89
[2020-11-22] MEDS: SENNOSIDES-DOCUSATE SODIUM 1 EACH TAB PO SCH (08:41)
--- NOTE | 2020-11-22 10:42 | P.DS ---
Providers Date of admission: 11/21/20 09:17 Expected date of discharge: 11/22/20 Attending physician: Serge Salas Primary care physician: Stated None - Discharge Diagnosis(es) (1) Spontaneous onset of labor Current Visit: Yes Status: Acute (2) Term Current Visit: Yes Status: Acute (3) Normal spontaneous vaginal delivery Current Visit: No Status: Acute (4) Perineal laceration with delivery, first degree Current Visit: Yes Status: Acute Hospital Course: This is a 3 now para 3 woman who presented at 39-4/7 weeks gestation in spontaneous active labor. She had had an uncomplicated . Following admission she did undergo artificial rupture of membranes. She did not receive any type of analgesia. She went on to have a rapid and uncomplicated delivery of a liveborn female infant over a first-degree perineal laceration. Weight was 7 lbs. 9 oz. with Apgars of 9 at 1 minute and 9 at 5 minutes. Her course was entirely unremarkable. By day #1 she was ambulating and voiding without difficulty, breast-feeding successfully and had moderate lochia. She was using ibuprofen as needed for cramping. Her vital signs and labs were within normal limits. She was therefore discharged home on day #1 with routine instructions for care and follow-up. She does have a history of depression with her previous 2 deliveries and was instructed to restart her Lexapro. She is instructed to notify the office with any worsening on mood, anxiety, thoughts of self-harm or harm towards the baby. Patient Condition at Discharge: Good Plan - Discharge Summary New Discharge Prescriptions: No Action Pnv,Calcium 72/Iron/Folic Acid [ Plus Tablet] 1 tab PO DAILY Ferrous Sulfate [Iron] 1 tab PO DAILY Escitalopram [Lexapro] 10 mg PO DAILY Discharge Medication List Pnv,Calcium 72/Iron/Folic Acid [ Plus Tablet] 1 tab PO DAILY 04/16/17 [History] Ferrous Sulfate [Iron] 1 tab PO DAILY 04/05/19 [History] Escitalopram [Lexapro] 10 mg PO DAILY 11/20/20 [History] Follow up Appointment(s)/Referral(s): Serge Salas MD [STAFF PHYSICIAN] - 6 Weeks Activity/Diet/Wound Care/Special Instructions: Follow-up in the office in 6 weeks . Call with any concerning signs or symptoms including heavy vaginal bleeding, severe abdominal pain, fever greater than 101, swelling or redness of the lower extremities, foul vaginal discharge, or signs of depression. Nothing in the vagina for 6 weeks after delivery, specifically no intercourse. Discharge Disposition: HOME SELF-CARE
== END 2020-11-22 14:52 | disposition home or self-care (01) | DRG 807 ==
LOC: FBPOP 08:56 → 4FBP 09:17
PROVIDERS: ADMIT Obstetrics & Gynecology; ATTEND Obstetrics & Gynecology
PROC: 3E033VJ Introduction of Other Hormone into Peripheral Vein, Percutaneous Approach (ICD-10-PCS; principal; 2020-11-21)
PROC: 0HQ9XZZ Repair Perineum Skin, External Approach (ICD-10-PCS; principal; 2020-11-21)
PROC: 10E0XZZ Delivery of Products of Conception, External Approach (ICD-10-PCS; principal; 2020-11-21)
DX: O99.344 Other mental disorders complicating childbirth (principal); Z37.0 Single live birth; O99.52 Diseases of the respiratory system complicating childbirth; O70.0 First degree perineal laceration during delivery; J45.909 Unspecified asthma, uncomplicated; O99.284 Endocrine, nutritional and metabolic diseases complicating childbirth; E07.9 Disorder of thyroid, unspecified; F41.9 Anxiety disorder, unspecified; Z3A.39 39 weeks gestation of pregnancy; Z79.899 Other long term (current) drug therapy; Z83.49 Family history of other endocrine, nutritional and metabolic diseases; Z98.890 Other specified postprocedural states
CPT/HCPCS: 59025; 85025; 86850; 86900; 86901; 99213

== ENCOUNTER 2023-06-20 05:38 | Inpatient (IN) | payer BC, OTHER ==
[2023-06-20] MEDS ORDERED: CARBOPROST TROMETHAMINE 250 MCG/ML 1 ML AMP IM PRN (06:08)
[2023-06-20] MEDS ORDERED: LIDOCAINE 0.5% (PF) 5 MG/ML (50 ML SDV) SQ PRN (06:08)
[2023-06-20] MEDS ORDERED: METHYLERGONOVINE 0.2 MG/ML 1 ML AMP IM PRN (06:08)
[2023-06-20] MEDS ORDERED: TERBUTALINE 1 MG/ML VIAL SQ PRN (06:08)
[2023-06-20] MEDS ORDERED: TRANEXAMIC 1,000 MG/100ML-NACL 1,000 MG in EMPTY BAG 1 BAG IV PRN (06:08)
[2023-06-20] MEDS ORDERED: OXYTOCIN 10 UNIT/ML 1 ML VIAL IM PRN (06:08)
[2023-06-20] MEDS ORDERED: miSOPROStoL 200 MCG TAB PO PRN (06:08)
[2023-06-20 06:49] LABS: Basophils # (A) 0.1 k/uL (0-0.2); Basophils % (A) 0 %; Eosinophils # (A) 0.2 k/uL (0-0.7); Eosinophils % (A) 2 %; HCT 29.9 % (34.0-46.0); HGB 10.3 gm/dL (11.4-16.0); Lymphocytes # (A) 2.3 k/uL (1.0-4.8); Lymphocytes % (A) 19 %; MCH 29.7 pg (25.0-35.0); MCHC 34.4 g/dL (31.0-37.0); MCV 86.3 fL (80.0-100.0); Mean Platelet Volume 9.4; Monocytes # (A) 0.9 k/uL (0-1.0); Monocytes % (A) 8 %; Neutrophils # (A) 8.4 k/uL (1.3-7.7); Neutrophils % (A) 70 %; Platelet Count 208 k/uL (150-450); RBC 3.47 m/uL (3.80-5.40); RDW 13.4 % (11.5-15.5)
[2023-06-20] MEDS: LACTATED RINGERS 1,000 ML IV SCH ×2 (06:53→16:28)
[2023-06-20] MEDS ORDERED: OXYTOCIN 30 UNITS/500 ML NS 30 UNIT in SALINE 1 500ML.BAG IV SCH ×2 (09:45→13:00)
[2023-06-20] MEDS ORDERED: ACETAMINOPHEN TAB 325 MG TAB PO PRN (12:51)
[2023-06-20] MEDS ORDERED: diphenhydrAMINE 50 MG/ML 1 ML VIAL IVP PRN ×2 (12:51)
[2023-06-20] MEDS ORDERED: ZOLPIDEM 5 MG TAB PO PRN (12:51)
[2023-06-20] MEDS ORDERED: diphenhydrAMINE 25 MG CAP PO PRN (12:51)
[2023-06-20] MEDS ORDERED: HYDROCORTISONE 2.5% RECTAL CREAM 30 GM TUBE RECTAL PRN (12:51)
[2023-06-20] MEDS ORDERED: diphenhydrAMINE 50 MG CAP PO PRN (12:51)
[2023-06-20] MEDS ORDERED: LANOLIN CREAM 5 GM TUBE TOPICAL PRN (12:51)
[2023-06-20] MEDS ORDERED: SIMETHICONE 80 MG CHEWABLE PO PRN (12:51)
[2023-06-20] MEDS ORDERED: HYDROcodone/APAP 5-325MG 1 EACH TAB PO PRN (12:51)
[2023-06-20] MEDS ORDERED: BENZOCAINE/MENTHOL SPRAY 1 GM/SPRAY AEROSOL TOPICAL PRN (12:51)
[2023-06-20] MEDS ORDERED: HYDROcodone/APAP 7.5-325MG 1 EACH TAB PO PRN (12:51)
[2023-06-20] MEDS ORDERED: IBUPROFEN 600 MG TAB PO PRN (12:51)
--- NOTE | 2023-06-20 12:58 | P.HPOB ---
History of Present Illness H&P Date: 06/20/23 Chief Complaint: 38+ weeks, spontaneous rupture of membranes The patient is a 32-year-old 5 para 3013 admitted at 38+ weeks as established by last menstrual period and confirmed by 12 week ultrasound. She is admitted with documented spontaneous rupture of membranes with apparent meconium stained fluid. Her has been entirely uncomplicated and group B strep status is negative. On labor and delivery, all signs are reassuring with a category 1 heart rate tracing. Obstetrical history: 5 para 3013 with 3 term vaginal deliveries without complications. Current statistics are listed in history present illness. EDC of 07/06/2023 was established by last menstrual period and confirmed by 12 week ultrasound. Laboratory workup demonstrates a blood type of A+ with a negative antibody screen. Rubella status is immune. The remainder of the laboratory workup was within normal limits. One hour Glucola was normal and group B strep status is negative. Gynecologic history: Unremarkable with no history of any infections to include STDs. Review of Systems Review of systems is confined to history of present illness. Past Medical History Past Medical History: Asthma, Thyroid Disorder Additional Past Medical History / Comment(s): endometriosis, ovarian cyst History of Any Multi-Drug Resistant Organisms: None Reported Additional Past Surgical History / Comment(s): laprascopic removal of ovarian cyst Past Anesthesia/Blood Transfusion Reactions: No Reported Reaction Past Psychological History: Anxiety, Depression Smoking Status: Never smoker Past Alcohol Use History: None Reported Past Drug Use History: None Reported - Past Family History Mother Family Medical History: Thyroid Disorder Additional Family Medical History / Comment(s): hypothyroidism Medications and Allergies Home Medications Medication Instructions Recorded Confirmed Type Pnv,Calcium 72/Iron/Folic Acid 1 tab PO DAILY 04/16/17 06/20/23 History [ Plus Tablet] Ferrous Sulfate [Iron] 1 tab PO DAILY 04/05/19 06/20/23 History Escitalopram [Lexapro] 10 mg PO DAILY 11/20/20 06/20/23 History Allergies Allergy/AdvReac Type Severity Reaction Status Date / Time No Known Allergies Allergy Verified 06/20/23 05:50 Exam Vital Signs Temp Pulse Resp BP 06/20/23 06:43 98.3 F 95 16 132/65 Intake and Output 06/19/23 06/20/23 06/20/23 22:59 06:59 14:59 Other: Weight 80.286 kg In general, this is a well-developed, well-nourished white female in no acute distress. Her heart has a regular rhythm and rate without murmur. Her lungs clear to auscultation bilaterally in all proctor. Her abdomen is gravid, nondi stended, has normal active bowel sounds, soft, nontender, and without any palpable masses aside from uterine fundus. Her extremities are without any cyanosis, clubbing, or edema and are nontender to palpation bilaterally. Digital cervical examination demonstrates her cervix to be 3-47 m dilated, 60% effaced, the vertex in presentation at -2 station. Spontaneous rupture of membranes is confirmed with light meconium-stained fluid noted. Results Result Diagrams: 06/20/23 06:35 Abnormal Lab Results - Last 24 Hours (Table) 06/20/23 Range/Units 06:35 WBC 12.0 H (3.8-10.6) k/uL RBC 3.47 L (3.80-5.40) m/uL Hgb 10.3 L (11.4-16.0) gm/dL Hct 29.9 L (34.0-46.0) % Neutrophils # 8.4 H (1.3-7.7) k/uL Assessment and Plan (1) Term Current Visit: No Status: Acute Code(s): Z34.90 - ENCNTR FOR SUPRVSN OF NORMAL , UNSP, UNSP TRIMESTER SNOMED Code(s): 83054889 (2) Spontaneous rupture of amniotic membranes Current Visit: Yes Status: Acute Code(s): QRR2697 - SNOMED Code(s): 673306034 Plan: The patient is admitted for active management of labor. Should labor not ensue on its own, Pitocin augmentation will be added. She will have close maternal and surveillance and expectant management will be practiced. She is a good candidate for either IV or epidural analgesia, whichever she may choose.
--- NOTE | 2023-06-20 13:00 | P.PROBDLV ---
Vaginal Delivery Note - . Vaginal Delivery Note: The patient is a 32-year-old 5 para 3013 admitted at approximately 38 weeks gestation by good dating parameters. She is admitted with documented spontaneous rupture of membranes for light to moderate meconium-stained fluid. Her has been uncomplicated and group B strep status is negative. On labor and delivery, all signs are reassuring with a category 1 heart tracing. She requested no intervention to begin with but was making minimal progress after approximately 8 hours of rupture her she then had Pitocin augmentation started and began to make fairly steady change. She progressed fairly quickly through the active phase of labor to complete and then pushed over the course of approximate 10-15 minutes to a normal spontaneous vaginal delivery of a viable 8 lbs. 3 oz. baby girl with Apgars of 9 at 1 minute and 9 at 5 minutes. The placenta was delivered spontaneously, intact, and grossly normal with a grossly normal, marginally inserted three-vessel cord. There was a small first-degree midline perineal laceration likely over the site of a previous laceration which was repaired with a single [id number] stitch of 3-0 chromic catgut without difficulty. Estimated blood loss for the case is approximately 200 mL. There were no complications. All sponge, instrument, and needle counts were correct. Both mother and are resting comfortably in recovery.
[2023-06-21] MEDS: SENNOSIDES-DOCUSATE SODIUM 1 EACH TAB PO SCH ×2 (00:02→08:31)
[2023-06-21] MEDS: LACTATED RINGERS 1,000 ML IV SCH (00:02)
[2023-06-21 04:54] VITALS: RESP 16
[2023-06-21 07:20] LABS: Basophils % (A) 0 %; Eosinophils # (A) 0.3 k/uL (0-0.7); Eosinophils % (A) 3 %; HCT 27.6 % (34.0-46.0); HGB 9.2 gm/dL (11.4-16.0); Lymphocytes # (A) 2.5 k/uL (1.0-4.8); Lymphocytes % (A) 21 %; MCH 28.9 pg (25.0-35.0); MCHC 33.2 g/dL (31.0-37.0); Mean Platelet Volume 9.3; Monocytes # (A) 0.9 k/uL (0-1.0); Monocytes % (A) 8 %; Neutrophils # (A) 7.7 k/uL (1.3-7.7); Neutrophils % (A) 67 %; Platelet Count 182 k/uL (150-450); RBC 3.18 m/uL (3.80-5.40); RDW 13.3 % (11.5-15.5); WBC 11.6 k/uL (3.8-10.6)
--- NOTE | 2023-06-21 09:49 | P.DS ---
Providers Date of admission: 06/20/23 06:08 Expected date of discharge: 06/21/23 Attending physician: Serge Salas Primary care physician: Stated None - Discharge Diagnosis(es) (1) Term Current Visit: No Status: Acute (2) Spontaneous rupture of amniotic membranes Current Visit: Yes Status: Acute (3) Normal spontaneous vaginal delivery Current Visit: Yes Status: Acute Hospital Course: The patient is a 32-year-old 5 para 3013 admitted at 38 weeks by good dating parameters. She is admitted with documented spontaneous rupture of membranes with light to moderate meconium-stained fluid. Her was uncomplicated and group B strep status was negative. On labor and delivery, all signs were reassuring with a category 1 heart rate tracing. As she made little progress without augmentation over the course of the for 6-8 hours, Pitocin augmentation was started. She progressed then steadily through the active phase of labor to complete and pushed to a normal spontaneous vaginal delivery of a viable 8 lbs. 3 oz. baby girl with Apgars of 9 at 1 minute and 9 at 5 minutes. Her course was unremarkable with vital signs remaining stable and her temperature was afebrile throughout. She was deemed stable for discharge on day #1 and was discharged home to follow-up in the office in 6 weeks' time routinely. Discharge instructions included calling for any significantly increased bleeding or foul-smelling lochia, significantly increased fever abdominal pain, perineal rates, breast complaints, or anything else that concerned her. She was additionally instructed to have nothing in the vagina for at least 6 weeks time to include intercourse. She understood her instructions and agrees to follow up as noted above. Discharge medications included continued vitamins as she has opted to breast-feed. She was otherwise to use [id number] analgesic pain medications as needed. Maternal blood type is A+ and rubella status is immune. Procedures: #1. Pitocin augmentation #2. Normal spontaneous vaginal delivery #3. Repair of first degree perineal laceration Patient Condition at Discharge: Stable Plan - Discharge Summary New Discharge Prescriptions: No Action Pnv,Calcium 72/Iron/Folic Acid [ Plus Tablet] 1 tab PO DAILY Ferrous Sulfate [Iron] 1 tab PO DAILY Escitalopram [Lexapro] 10 mg PO DAILY Discharge Medication List Pnv,Calcium 72/Iron/Folic Acid [ Plus Tablet] 1 tab PO DAILY 04/16/17 [History] Ferrous Sulfate [Iron] 1 tab PO DAILY 04/05/19 [History] Escitalopram [Lexapro] 10 mg PO DAILY 11/20/20 [History] Follow up Appointment(s)/Referral(s): Serge Salas MD [STAFF PHYSICIAN] - 6 Weeks Discharge Disposition: HOME SELF-CARE
[2023-06-21 16:27] VITALS: BP 121/72; PULSE 73; TEMP 97.9
== END 2023-06-21 16:15 | disposition home or self-care (01) | DRG 807 ==
LOC: FBPOP 05:38 → 4FBP 06:08
PROVIDERS: ADMIT Obstetrics & Gynecology; ATTEND Obstetrics & Gynecology
PROC: 0HQ9XZZ Repair Perineum Skin, External Approach (ICD-10-PCS; principal; 2023-06-20)
PROC: 10E0XZZ Delivery of Products of Conception, External Approach (ICD-10-PCS; principal; 2023-06-20)
DX: O42.02 Full-term premature rupture of membranes, onset of labor within 24 hours of rupture (principal); O62.3 Precipitate labor; O70.0 First degree perineal laceration during delivery; O77.0 Labor and delivery complicated by meconium in amniotic fluid; O43.193 Other malformation of placenta, third trimester; O99.344 Other mental disorders complicating childbirth; O99.52 Diseases of the respiratory system complicating childbirth; O99.284 Endocrine, nutritional and metabolic diseases complicating childbirth; E07.9 Disorder of thyroid, unspecified; J45.909 Unspecified asthma, uncomplicated; Z28.310 Unvaccinated for COVID-19; F32.A Depression, unspecified; F41.9 Anxiety disorder, unspecified; Z79.899 Other long term (current) drug therapy; Z3A.38 38 weeks gestation of pregnancy; Z37.0 Single live birth
CPT/HCPCS: 59025; 85025; 86850; 86900; 86901; 99213

== ENCOUNTER 2024-07-26 13:37 | Emergency (ER) | payer BC, OTHER ==
[2024-07-26 13:52] VITALS: BP 116/70; PULSE 98; RESP 18; TEMP 98.6
--- NOTE | 2024-07-26 14:01 | ED ---
General Adult HPI - General Chief complaint: Recheck/Abnormal Lab/Rx Stated complaint: near syncope Time Seen by Provider: 07/26/24 13:42 Source: patient, RN notes reviewed Mode of arrival: EMS Limitations: no limitations - History of Present Illness Initial comments: 33-year-old female presents emerged part via EMS from urgent care for near syncopal episode. Patient states she was not feeling well she was trying to take care of her baby overnight when she stood up quickly felt like she was going to pass out. She became very clammy and generalized not feeling well. She states that she feels like she is coming down with a cold in which she stopped to urgent care to be evaluated. She states that they did some orthostatic blood pressures blood sugar and did not EKG and they immediately rushed out the door and she is unsure why. She states that she never had chest pain or shortness of breath and still does not she is asymptomatic currently. She states that EMS Asked her why or where she had chest pain. Patient states all she knew that she was told she had an abnormal EKG. - Related Data Home Medications Medication Instructions Recorded Confirmed Pnv,Calcium 72/Iron/Folic Acid 1 tab PO DAILY 04/16/17 06/20/23 [ Plus Tablet] Ferrous Sulfate [Iron] 1 tab PO DAILY 04/05/19 06/20/23 Escitalopram [Lexapro] 10 mg PO DAILY 11/20/20 06/20/23 Allergies Allergy/AdvReac Type Severity Reaction Status Date / Time No Known Allergies Allergy Verified 06/20/23 05:50 Review of Systems ROS Statement: Those systems with pertinent positive or pertinent negative responses have been documented in the HPI. ROS Other: All systems not noted in ROS Statement are negative. Past Medical History Past Medical History: Asthma, Thyroid Disorder Additional Past Medical History / Comment(s): endometriosis, ovarian cyst History of Any Multi-Drug Resistant Organisms: None Reported Additional Past Surgical History / Comment(s): laprascopic removal of ovarian cyst Past Anesthesia/Blood Transfusion Reactions: No Reported Reaction Past Psychological History: Anxiety, Depression Smoking Status: Never smoker Past Alcohol Use History: None Reported Past Drug Use History: None Reported - Past Family History Mother Family Medical History: Thyroid Disorder Additional Family Medical History / Comment(s): hypothyroidism General Exam Limitations: no limitations General appearance: alert, in no apparent distress Head exam: Present: atraumatic, normocephalic, normal inspection Eye exam: Present: normal appearance, PERRL, EOMI. Absent: scleral icterus, conjunctival injection, periorbital swelling ENT exam: Present: normal exam, mucous membranes moist Neck exam: Present: normal inspection, full ROM. Absent: tenderness, meningismus, lymphadenopathy Respiratory exam: Present: normal lung sounds bilaterally. Absent: respiratory distress, wheezes, rales, rhonchi, stridor Cardiovascular Exam: Present: regular rate, normal rhythm, normal heart sounds. Absent: systolic murmur, diastolic murmur, rubs, gallop, clicks GI/Abdominal exam: Present: soft, normal bowel sounds. Absent: distended, tenderness, guarding, rebound, rigid Neurological exam: Present: alert, oriented X3, CN II-XII intact, reflexes normal. Absent: motor sensory deficit Skin exam: Present: warm, dry, intact, normal color. Absent: rash Course Vital Signs 07/26/24 13:39 Temperature 98.6 F Pulse Rate 98 Respiratory 18 Rate Blood Pressure 116/70 O2 Sat by Pulse 98 Oximetry EKG Findings - EKG Comments: EKG Findings:: EKG performed at 13: 42 sinus rhythm rate of 83 MS 168 QRS 98 QT/QTc 352/392 - EKG Results: EKG: interpreted by EVON Medical Decision Making - Medical Decision Making Was pt. sent in by a medical professional or institution ([facility], ER MANAGER, urgent care, hospital, or senior living...) When possible be specific @ -Urgent care Did you speak to anyone other than the patient for history (EMS, parent, family, police, friend...)? What history was obtained from this source @ -No Did you review nursing and triage notes (agree or disagree)? Why? @ -I reviewed and agree with nursing and triage notes Were old charts reviewed (outside hosp., previous admission, EMS record, old EKG, old radiological studies, urgent care reports/EKG's, senior living records)? Report findings @ -No old charts were reviewed Differential Diagnosis (chest pain, altered mental status, abdominal pain women, abdominal pain men, vaginal bleeding, weakness, fever, dyspnea, syncope, headache, dizziness, GI bleed, back pain, seizure, CVA, palpatations, mental health, musculoskeletal)? @ -Differential Syncope: Valvular disease, hypertrophic cardiomyopathy, pulmonary embolism, tamponade, tachycardia, bradycardia, VA, hypovolemia, hemorrhage, dissection, anemia, intracranial hemorrhage, seizure, hypoglycemia, carbon monoxide poisoning, this is not meant to be an all-inclusive list. EKG interpreted by me (3pts min.). @ -As above X-rays interpreted by me (1pt min.). @ -None done CT interpreted by me (1pt min.). @ -None done U/S interpreted by me (1pt. min.). @ -None done What testing was considered but not performed or refused? (CT, X-rays, U/S, labs)? Why? @ -None What meds were considered but not given or refused? Why? @ -None Did you discuss the management of the patient with other professionals (professionals i.e. , PA, ER MANAGER, lab, RT, psych nurse, 7th grade social studies teacher, merchandise execution leader, teacher, agricultural loan officer, caser shoe parts)? Give summary @ -No Was smoking cessation discussed for >3mins.? @ -No Was critical care preformed (if so, how long)? @ -No Were there social determinants of health that impacted care today? How? (Homelessness, low income, unemployed, alcoholism, drug addiction, transportation, low edu. Level, literacy, decrease access to med. care, halfway, rehab)? @ -No Was there de-escalation of care discussed even if they declined (Discuss DNR or withdrawal of care, Hospice)? DNR status @ -No What co-morbidities impacted this encounter? (DM, HTN, Smoking, COPD, CAD, Cancer, CVA, ARF, Chemo, Hep., AIDS, mental health diagnosis, sleep apnea, morbid obesity)? @ -None Was patient admitted / discharged? Hospital course, mention meds given and route, prescriptions, significant lab abnormalities, going to OR and other pertinent info. @ -Discharge patient is currently asymptomatic patient had normal EKG with no acute findings. She never any chest pain shortness of breath. I did offer laboratory studies patient declined stating that she has no complaints. Patient discharged in stable condition return parameters oscar. Undiagnosed new problem with uncertain prognosis? @ -No Drug Therapy requiring intensive monitoring for toxicity (Heparin, Nitro, Insulin, Cardizem)? @ -No Were any procedures done? @ -No Diagnosis/symptom? @ -Near syncope Acute, or Chronic, or Acute on Chronic? @ -Acute Uncomplicated (without systemic symptoms) or Complicated (systemic symptoms)? @ -Uncomplicated Side effects of treatment? @ -No Exacerbation, Progression, or Severe Exacerbation? @ -No Poses a threat to life or bodily function? How? (Chest pain, USA, VA, pneumonia, PE, COPD, DKA, ARF, appy, cholecystitis, CVA, Diverticulitis, Homicidal, Suicidal, threat to staff... and all critical care pts) @ -No Disposition Clinical Impression: Near syncope Disposition: HOME SELF-CARE Condition: Stable Additional Instructions: Please return to the Emergency Department if symptoms worsen or any other concerns. Is patient prescribed a controlled substance at d/c from ED?: No Referrals: Nena Kincaid PAC [REFERRING] - 1-2 days Time of Disposition: 14:01
== END 2024-07-26 14:12 | disposition home or self-care (01) ==
LOC: EC 13:37
DX: R55 Syncope and collapse (principal)
CPT/HCPCS: 93005

== ENCOUNTER 2025-04-29 06:00 | Inpatient (IN) | payer BC ==
[2025-04-29] MEDS ORDERED: miSOPROStoL 200 MCG TAB PO PRN (06:17)
[2025-04-29] MEDS ORDERED: METHYLERGONOVINE 0.2 MG/ML 1 ML AMP IM PRN (06:17)
[2025-04-29] MEDS ORDERED: CARBOPROST TROMETHAMINE 250 MCG/ML 1 ML AMP IM PRN (06:17)
[2025-04-29] MEDS ORDERED: OXYTOCIN 10 UNIT/ML 1 ML VIAL IM PRN (06:17)
[2025-04-29] MEDS ORDERED: TERBUTALINE 1 MG/ML VIAL SQ PRN (06:17)
[2025-04-29] MEDS ORDERED: miSOPROStoL 200 MCG TAB RECTAL PRN (06:17)
[2025-04-29] MEDS ORDERED: LIDOCAINE 0.5% (PF) 5 MG/ML (50 ML SDV) SQ PRN (06:17)
[2025-04-29] MEDS ORDERED: TRANEXAMIC 1,000 MG/100ML-NACL 1,000 MG in EMPTY BAG 1 BAG IV PRN (06:17)
[2025-04-29] MEDS: LACTATED RINGERS 1,000 ML IV SCH (06:24)
[2025-04-29] MEDS: OXYTOCIN 30 UNITS/500 ML NS 30 UNIT in SALINE 1 500ML.BAG IV SCH (06:37)
[2025-04-29 07:00] LABS: Basophils # (A) 0.06 10*3/uL (0.00-0.10); Basophils % (A) 0.5 %; Eosinophils # (A) 0.23 10*3/uL (0.04-0.35); Eosinophils % (A) 1.9 %; HCT 29.7 % (37.2-46.3); HGB 9.8 g/dL (12.0-15.0); Lymphocytes # (A) 3.12 10*3/uL (0.90-5.00); Lymphocytes % (A) 25.7 %; MCH 28.4 pg (27.0-32.0); MCV 86.1 fL (80.0-97.0); Monocytes # (A) 1.53 10*3/uL (0.20-1.00); Monocytes % (A) 12.6 %; Neutrophils # (A) 7.05 10*3/uL (1.80-7.70); Neutrophils % (A) 58.2 %; Platelet Count 247 10*3/uL (140-440); RBC 3.45 10*6/uL (4.10-5.20); RDW 13.2 % (11.5-14.5); WBC 12.12 10*3/uL (4.50-10.00)
[2025-04-29] MEDS ORDERED: LANOLIN CREAM 1 GM TUBE TOPICAL PRN (11:08)
[2025-04-29] MEDS ORDERED: BENZOCAINE/MENTHOL SPRAY 1 GM/SPRAY AEROSOL TOPICAL PRN (11:08)
[2025-04-29] MEDS ORDERED: SIMETHICONE 80 MG CHEWABLE PO PRN (11:08)
[2025-04-29] MEDS ORDERED: ZOLPIDEM 5 MG TAB PO PRN (11:08)
[2025-04-29] MEDS ORDERED: HYDROCORTISONE 2.5% RECTAL CREAM 30 GM TUBE RECTAL PRN (11:08)
[2025-04-29] MEDS ORDERED: diphenhydrAMINE 50 MG CAP PO PRN (11:08)
[2025-04-29] MEDS ORDERED: diphenhydrAMINE 50 MG/ML 1 ML VIAL IVP PRN ×2 (11:08)
[2025-04-29] MEDS ORDERED: diphenhydrAMINE 25 MG CAP PO PRN (11:08)
[2025-04-29] MEDS: IBUPROFEN 800 MG TAB PO SCH (11:25)
--- NOTE | 2025-04-29 12:40 | P.HPOB ---
History of Present Illness H&P Date: 04/29/25 Chief Complaint: 40-4/7 weeks, induction The patient is a 34-year-old 6 para 4-0-1-4 admitted at 40-4/7 weeks as established by 11-week ultrasound. She is admitted for postdates induction of labor with all signs reassuring, category 1 heart rate tracing. Her has been entirely uncomplicated and group B strep status is negative. Obstetrical history: 6 para 4-0-1-4 with 4 term vaginal deliveries without complications. Current statistics are listed in history of present illness. EDC of 04/25/2025 was established by 11-week ultrasound. Laboratory workup demonstrates a blood type of A+ with a negative antibody screen. Rubella status is immune. The remainder of the laboratory workup is within normal limits. 1 hour Glucola was normal and group B strep status is negative. Logic history: Unremarkable with no history of any infections to include STDs. Review of Systems This is confined to history of present illness. Past Medical History Past Medical History: GERD/Reflux, Thyroid Disorder Additional Past Medical History / Comment(s): endometriosis, ovarian cyst History of Any Multi-Drug Resistant Organisms: None Reported Additional Past Surgical History / Comment(s): laprascopic removal of ovarian cyst. eye surgery Past Anesthesia/Blood Transfusion Reactions: No Reported Reaction Past Psychological History: Anxiety, Depression Additional Psychological History / Comment(s): medicated Smoking Status: Never smoker Past Alcohol Use History: None Reported Past Drug Use History: None Reported - Past Family History Mother Family Medical History: Renal Disease, Thyroid Disorder Additional Family Medical History / Comment(s): hypothyroidism Medications and Allergies Home Medications Medication Instructions Recorded Confirmed Type Pnv,Calcium 72/Iron/Folic Acid 1 tab PO DAILY 04/16/17 04/29/25 History [ Plus Tablet] Escitalopram [Lexapro] 10 mg PO DAILY 11/20/20 04/29/25 History Allergies Allergy/AdvReac Type Severity Reaction Status Date / Time No Known Allergies Allergy Verified 04/29/25 06:16 Exam Vital Signs Temp Pulse Resp BP Pulse Ox 04/29/25 12:00 77 16 125/69 04/29/25 11:45 61 16 110/70 04/29/25 11:30 75 16 108/64 04/29/25 11:15 72 16 107/58 04/29/25 11:00 70 16 106/54 04/29/25 10:45 96.9 F L 80 16 111/56 98 04/29/25 06:18 98.1 F 81 18 124/75 99 Intake and Output 04/28/25 04/29/25 04/29/25 22:59 06:59 14:59 Intake Total 174.767 Output Total 150 Balance 24.767 Intake: Intake, IV Titration 174.767 Amount Oxytocin 30 Units/500 ml 174.767 Ns 30 unit In Saline 1 500ml.bag @ Per Protocol IV .Q0M [facility] Rx#:[id number] Output: Output, Quantitative 150 Blood Loss Other: Weight 85.275 kg In general, this is a well-developed, well-nourished white female in no acute distress. Her heart has a regular rhythm and rate without murmur. Her lungs are clear to auscultation bilaterally in all proctor. Her abdomen is gravid, nondistended, has normal active bowel sounds, soft, nontender, and without any palpable masses aside from the uterine fundus. Her extremities are without any cyanosis, cervical examination demonstrates her cervix to be 3 to 4 cm dilated, 60% effaced, with the vertex and presentation at -2 station. Artificial rupture of membranes is carried out demonstrating clear fluid. Results Result Diagrams: 04/29/25 06:31 Abnormal Lab Results - Last 24 Hours (Table) 04/29/25 Range/Units 06:31 WBC 12.12 H (4.50-10.00) 10*3/uL RBC 3.45 L (4.10-5.20) 10*6/uL Hgb 9.8 L (12.0-15.0) g/dL Hct 29.7 L (37.2-46.3) % Immature Gran # 0.13 H (0.00-0.04) 10*3/uL Monocytes # 1.53 H (0.20-1.00) 10*3/uL Assessment and Plan (1) Post-dates Current Visit: Yes Status: Acute Code(s): O48.0 - POST-TERM SNOMED Code(s): 98513006 Plan: Pitocin augmentation has been started and she has undergone artificial rupture of membranes. Surveillance and expectant management will be practiced. She is a good candidate for either IV or epidural analgesia should she choose.
--- NOTE | 2025-04-29 12:42 | P.PROBDLV ---
Vaginal Delivery Note - . Vaginal Delivery Note: The patient is a 34-year-old 6 para 4-0-1-4 admitted at [facility]. She is admitted for postdates induction of labor with all signs reassuring, category 1 heart rate tracing. Her located and group B strep status is negative send started followed by artificial rupture of membranes for clear fluid. She declined analgesia and made rapid progress through the active phase of labor to complete. She over the course of 2-3 pushes to spontaneous vaginal delivery of a viable 8 pound 14 ounce baby girl with Apgars of 8 at 1 minute direct occiput anterior position. Placenta was delivered spontaneously, intact, and grossly normal with a grossly normal, centrally inserted three-vessel cord. There was a small first-degree perineal laceration noted over the site of a previous repair which was repaired in standard fashion using 3-0 chromic catgut without difficulty. Estimated blood loss for the case approximately 150 mL. All sponge, instrument, and needle counts were correct. There were no complications. Both mother and are resting comfortably in recovery.
[2025-04-29] MEDS: ACETAMINOPHEN TAB 500 MG TAB PO SCH (16:00)
[2025-04-29] MEDS: SENNOSIDES-DOCUSATE SODIUM 1 EACH TAB PO SCH (19:55)
[2025-04-30 06:31] LABS: Basophils # (A) 0.05 10*3/uL (0.00-0.10); Basophils % (A) 0.4 %; Eosinophils # (A) 0.25 10*3/uL (0.04-0.35); Eosinophils % (A) 2.2 %; HGB 8.9 g/dL (12.0-15.0); Lymphocytes # (A) 3.08 10*3/uL (0.90-5.00); Lymphocytes % (A) 26.9 %; MCH 28.9 pg (27.0-32.0); MCV 87.7 fL (80.0-97.0); Mean Platelet Volume 11.8 fL (9.5-12.2); Monocytes # (A) 1.38 10*3/uL (0.20-1.00); Monocytes % (A) 12.1 %; Neutrophils # (A) 6.59 10*3/uL (1.80-7.70); Neutrophils % (A) 57.6 %; Platelet Count 210 10*3/uL (140-440); RBC 3.08 10*6/uL (4.10-5.20); RDW 13.4 % (11.5-14.5); WBC 11.44 10*3/uL (4.50-10.00)
[2025-04-30 08:14] VITALS: BP 117/75; PULSE 88; RESP 15; TEMP 98
--- NOTE | 2025-04-30 08:41 | P.DS ---
Providers Date of admission: 04/29/25 06:00 Expected date of discharge: 04/30/25 Attending physician: Serge Salas Primary care physician: Chidi Weston MD - Discharge Diagnosis(es) (1) Post-dates Current Visit: Yes Status: Acute (2) Normal spontaneous vaginal delivery Current Visit: Yes Status: Acute Hospital Course: The patient is a 34-year-old 6 para 4-0-1-4 admitted at 40-4/7 weeks by good dating parameters. She is admitted for postdates induction of labor with all signs reassuring, category 1 heart rate tracing. Her has been uncomplicated and group B strep status is negative. On labor and delivery, she had Pitocin started followed by artificial rupture of membranes. She made rapid progress through the late and active phase of labor to complete and then pushed to a normal spontaneous vaginal delivery of a viable 8 pound 14 ounce bab y girl with Apgars of 8 at 1 minute and 9 at 5 minutes. Her course was unremarkable with vital signs remaining stable and her temperature was afebrile throughout. She was deemed stable for discharge on day #1 and was discharged home to follow-up in the office in 6 weeks time routinely. Discharge instructions included calling for any significantly increased bleeding or foul-smelling lochia, significantly increased fever abdominal pain, perineal complaints, breast complaints, or anything else that concerned her. She was additionally instructed to have nothing in the vagina for at least 6 weeks time to include intercourse. She understood her instructions and agrees to follow-up as noted above. Discharge medications included continued vitamins as she has opted to breast-feed. She was otherwise to use [id number] analgesic pain medications as needed. Maternal blood type is A+ and rubella status is immune. Procedures: #1. Pitocin induction #2. Artificial rupture of membranes #3. Normal spontaneous vaginal delivery #4. Repair of perineal laceration Patient Condition at Discharge: Stable Plan - Discharge Summary New Discharge Prescriptions: No Action Pnv,Calcium 72/Iron/Folic Acid [ Plus Tablet] 1 tab PO DAILY Escitalopram [Lexapro] 10 mg PO DAILY Discharge Medication List Pnv,Calcium 72/Iron/Folic Acid [ Plus Tablet] 1 tab PO DAILY 04/16/17 [History] Escitalopram [Lexapro] 10 mg PO DAILY 11/20/20 [History] Follow up Appointment(s)/Referral(s): Maday Roberts CN [[place] Nurse] - 06/11/25 3:15 pm Discharge Disposition: HOME SELF-CARE
== END 2025-04-30 13:16 | disposition home or self-care (01) | DRG 807 ==
LOC: 4FBP 06:00
PROVIDERS: ADMIT Obstetrics & Gynecology; ATTEND Obstetrics & Gynecology
PROC: 10E0XZZ Delivery of Products of Conception, External Approach (ICD-10-PCS; principal; 2025-04-29)
PROC: 3E033VJ Introduction of Other Hormone into Peripheral Vein, Percutaneous Approach (ICD-10-PCS; 2025-04-29)
PROC: 10907ZC Drainage of Amniotic Fluid, Therapeutic from Products of Conception, Via Natural or Artificial Opening (ICD-10-PCS; 2025-04-29)
DX: O48.0 Post-term pregnancy (principal); Z37.0 Single live birth; O99.344 Other mental disorders complicating childbirth; F32.A Depression, unspecified; F41.9 Anxiety disorder, unspecified; Z3A.40 40 weeks gestation of pregnancy; Z79.899 Other long term (current) drug therapy
CPT/HCPCS: 85025; 86850; 86900; 86901